=== PATIENT | female | born 2000 | race Caucasian/White ===

== ENCOUNTER 2021-08-06 13:20 | Inpatient (IN) | payer OTHER ==
[2021-08-06 14:44] VITALS: BMI 40.5
[2021-08-06 14:49] LABS: BASO % 0.3 % (0-2.0); EOS % 1.1 % (0-4.5); HEMATOCRIT 38.2 % (32.4-45.2); HEMOGLOBIN 12.7 GM/dL (10.7-15.3); LYMPH % 29.7 % (8-40); MCHC 33.3 g/dl (32.0-36.0); MEAN CELL VOLUME 84.1 fl (80-96); MEAN PLT VOLUME 9.4 fl (7.5-11.1); MONO % 5.9 % (3.8-10.2); PLATELET COUNT 238 10^3/uL (134-434); RBC 4.54 M/mm3 (3.60-5.2); RDW 14.3 % (11.6-15.6)
[2021-08-06] MEDS ORDERED: PROMETHAZINE HCL 25 MG/1 ML VIAL IVPUSH ONE (14:52)
[2021-08-06] MEDS ORDERED: BUTORPHANOL TARTRATE 1 MG/ML VIAL IVPB PRN (14:52)
[2021-08-06] MEDS ORDERED: DINOPROSTONE 10 MG VAGINAL SUPPOSITORY VG ONE (14:54)
[2021-08-06 15:14] LABS: ACTIVATED PTT 32.4 SECONDS (25.2-36.5); INR 1.02 (0.83-1.09); PROTHROMBIN TIME (PATIENT) 11.7 SEC (9.7-13.0)
[2021-08-06 15:43] LABS: BLOOD UREA NITROGEN 7.4 mg/dL (7-18)
[2021-08-06 15:46] LABS: CREATININE 0.5 mg/dL (0.55-1.3)
[2021-08-06] MEDS: ELECTROLYTE-148 SOLN 1,000 ML IV SCH (16:00)
[2021-08-06] MEDS ORDERED: AMPICILLIN - 2 GM in SODIUM CHLORIDE 100 ML IVPB ONE (18:00)
[2021-08-06] MEDS ORDERED: AMPICILLIN SODIUM 2 GM VIAL ONE (18:19)
[2021-08-06] MEDS ORDERED: AMPICILLIN SODIUM 1 GM VIAL ONE (21:31)
[2021-08-06] MEDS: AMPICILLIN - 1 GM in SODIUM CHLORIDE 100 ML IVPB SCH (21:45)
[2021-08-07] MEDS ORDERED: AMPICILLIN SODIUM 1 GM VIAL ONE ×3 (01:41→09:56)
[2021-08-07] MEDS: AMPICILLIN - 1 GM in SODIUM CHLORIDE 100 ML IVPB SCH ×5 (01:47→18:34)
[2021-08-07] MEDS ORDERED: OXYTOCIN 30 UNITS in 0.9% NS 30 UNIT/500 ML INFUS.BAG IVPB SCH (03:00)
[2021-08-07] MEDS ORDERED: OXYTOCIN 30 UNITS in 0.9% NS 30 UNIT/500 ML INFUS.BAG IVPB ONE (03:25)
[2021-08-07] MEDS ORDERED: BUTORPHANOL TARTRATE 2 MG/ML VIAL ONE (05:38)
[2021-08-07] MEDS ORDERED: PROMETHAZINE HCL 25 MG/1 ML VIAL ONE (05:38)
[2021-08-07] MEDS ORDERED: FENTANYL/BUPIVACAINE/NS/PF - PCEA - 50 ML DISP.SYRIN EP ONE (08:35)
[2021-08-07] MEDS ORDERED: BUPIVACAINE HCL/PF 0.25% (2.5MG/ML) 10 ML VIAL ONE (08:46)
[2021-08-07] MEDS: ELECTROLYTE-148 SOLN 1,000 ML IV SCH (10:00)
[2021-08-07] MEDS ORDERED: LIDOCAINE HCL/EPINEPHRINE/PF 20 ML VIAL ONE (11:47)
[2021-08-07] MEDS ORDERED: ceFAZolin SODIUM 1 GM VIAL ONE (11:51)
[2021-08-07] MEDS ORDERED: ONDANSETRON 4 MG/2 ML VIAL ONE (11:51)
[2021-08-07] MEDS ORDERED: morphine SULFATE/PF 1 MG/2 ML (2cc Syringe - QUVA) ONE (12:05)
[2021-08-07] MEDS ORDERED: OXYTOCIN 10 UNITS/ML VIAL ONE ×2 (12:18→12:20)
[2021-08-07 12:40] LABS: POC NITRAZINE NEG
[2021-08-07] MEDS ORDERED: OXYTOCIN 20 UNITS in 0.9% NS 20 UNIT/1,000 ML INFUS.BAG IV ONE (12:55)
[2021-08-07] MEDS ORDERED: METHYLERGONOVINE MALEATE 0.2 MG/1 ML AMP IM PRN (12:57)
[2021-08-07] MEDS ORDERED: ACETAMINOPHEN 325 MG TABLET (FP) PO PRN (12:57)
[2021-08-07] MEDS ORDERED: OXYTOCIN 20 UNITS in 0.9% NS 20 UNIT/1,000 ML INFUS.BAG IV SCH (13:00)
[2021-08-07] MEDS ORDERED: ONDANSETRON 4 MG/2 ML VIAL IVPUSH PRN (13:06)
[2021-08-07] MEDS ORDERED: morphine SULFATE/PF 1 MG/2 ML (2cc Syringe - QUVA) EP ONE (13:06)
[2021-08-07 13:20] LABS: CORD HCO3 22.6 mmHg (20-29); CORD PCO2 54.5 mmHg (30-78); CORD pH 7.235 (7.14-7.44)
[2021-08-07] MEDS ORDERED: NALOXONE HCL 0.4 MG/ML VIAL IVPUSH PRN (13:20)
[2021-08-07 13:22] LABS: CORD BASE EXCESS -2.3 mmol/L (0-2); CORD HCO3 24.4 mmHg (20-29); CORD pH 7.315 (7.14-7.44)
[2021-08-07] MEDS ORDERED: FENTANYL/BUPIVACAINE/NS/PF - PCEA - 50 ML DISP.SYRIN EP SCH (13:30)
[2021-08-07] MEDS ORDERED: ACETAMINOPHEN 1000 MG/100 ML BAG IVPB PRN (17:33)
[2021-08-08] MEDS ORDERED: oxyCODONE HCL 5 MG TABLET PO PRN ×2 (00:57)
[2021-08-08] MEDS: SIMETHICONE 80 MG TAB.CHEW (FP) PO PRN ×3 (05:57→19:32)
[2021-08-08 08:11] LABS: BASO % 0.1 % (0-2.0); EOS % 0.7 % (0-4.5); HEMOGLOBIN 12.1 GM/dL (10.7-15.3); LYMPH % 20.9 % (8-40); MCH 27.6 pg (25.7-33.7); MCHC 32.7 g/dl (32.0-36.0); MEAN CELL VOLUME 84.4 fl (80-96); MEAN PLT VOLUME 9.6 fl (7.5-11.1); NEUT % 71.3 % (42.8-82.8); PLATELET COUNT 209 10^3/uL (134-434); RBC 4.38 M/mm3 (3.60-5.2); RDW 14.8 % (11.6-15.6); WHITE BLOOD COUNT 7.4 K/mm3 (4.0-10.0)
[2021-08-08] MEDS ORDERED: DIPHTH,PERTUSS(ACELL),TET 0.5 ML DISP.SYRIN IM ONE (10:00)
[2021-08-08] MEDS ORDERED: BISACODYL 10 MG SUPP.RECT RC PRN (12:57)
[2021-08-08] MEDS: IBUPROFEN 600 MG TABLET (FP) PO PRN (19:33)
[2021-08-09] MEDS: SIMETHICONE 80 MG TAB.CHEW (FP) PO PRN (00:50)
[2021-08-09] MEDS: IBUPROFEN 600 MG TABLET (FP) PO PRN ×3 (00:50→17:43)
[2021-08-10] MEDS: SIMETHICONE 80 MG TAB.CHEW (FP) PO PRN (00:07)
[2021-08-10] MEDS: IBUPROFEN 600 MG TABLET (FP) PO PRN ×2 (00:07→08:34)
[2021-08-10 09:02] LABS: BASO % 0.2 % (0-2.0); EOS % 7.9 % (0-4.5); HEMOGLOBIN 11.8 GM/dL (10.7-15.3); LYMPH % 33.4 % (8-40); MCH 28.5 pg (25.7-33.7); MCHC 33.7 g/dl (32.0-36.0); MEAN CELL VOLUME 84.8 fl (80-96); MEAN PLT VOLUME 9.1 fl (7.5-11.1); NEUT % 50.5 % (42.8-82.8); PLATELET COUNT 254 10^3/uL (134-434); RBC 4.13 M/mm3 (3.60-5.2); RDW 14.5 % (11.6-15.6)
[2021-08-10 10:11] VITALS: BP 107/76; PULSE 93; TEMP 97.7
[2021-08-10] MEDS ORDERED: DINOPROSTONE 10 MG VAGINAL SUPPOSITORY VG ONE (11:41)
== END 2021-08-10 12:15 | disposition home or self-care (01) | DRG 540 ==
LOC: JDEL 13:20 → JLDR 13:35 → J3W 08-07 15:20
PROVIDERS: ADMIT Obstetrics & Gynecology; ATTEND Obstetrics & Gynecology
PROC: 3E0P7VZ Introduction of Hormone into Female Reproductive, Via Natural or Artificial Opening (ICD-10-PCS; 2021-08-06)
PROC: 10D00Z1 Extraction of Products of Conception, Low, Open Approach (ICD-10-PCS; principal; 2021-08-07)
DX: O76 Abnormality in fetal heart rate and rhythm complicating labor and delivery (principal); O48.0 Post-term pregnancy; O42.02 Full-term premature rupture of membranes, onset of labor within 24 hours of rupture; Z3A.40 40 weeks gestation of pregnancy; Z37.0 Single live birth
CPT/HCPCS: 36415; 36600; 59025; 80048; 82803; 83986-QW; 85025; 85610; 85730; 86780; 86850; 86900; 86901; 88307-TC; 90715; C9803-CS; U0003; U0005

== ENCOUNTER 2021-09-08 14:11 | Emergency (ER) | payer OTHER ==
[2021-09-08 14:36] VITALS: BP 123/76; PULSE 86; TEMP 98.3; BMI 33.5
[2021-09-08 16:44] LABS: BASO % 0.4 % (0-2.0); EOS % 3.6 % (0-4.5); HEMATOCRIT 41.3 % (32.4-45.2); HEMOGLOBIN 13.4 GM/dL (10.7-15.3); LYMPH % 45.8 % (8-40); MCHC 32.5 g/dl (32.0-36.0); MEAN CELL VOLUME 83.3 fl (80-96); MEAN PLT VOLUME 8.5 fl (7.5-11.1); MONO % 6.4 % (3.8-10.2); NEUT % 43.8 % (42.8-82.8); PLATELET COUNT 283 10^3/uL (134-434); RBC 4.96 M/mm3 (3.60-5.2); RDW 14.5 % (11.6-15.6); WHITE BLOOD COUNT 5.1 K/mm3 (4.0-10.0)
[2021-09-08 17:04] LABS: CALCIUM 9.6 mg/dL (8.5-10.1)
[2021-09-08 17:05] LABS: ALBUMIN 3.6 g/dl (3.4-5.0)
[2021-09-08 17:08] LABS: CREATININE 0.6 mg/dL (0.55-1.3)
[2021-09-08 17:10] LABS: BILIRUBIN,TOTAL 0.2 mg/dL (0.2-1); TOT PROT 7.3 g/dl (6.4-8.2)
== END 2021-09-08 17:30 | disposition home or self-care (01) ==
LOC: JER 14:11
DX: T81.89XA Other complications of procedures, not elsewhere classified, initial encounter (principal)
CPT/HCPCS: 36415; 80053; 85025; 99283-25

== ENCOUNTER 2022-11-22 07:45 | Inpatient (IN) | payer OTHER ==
[2022-11-22] MEDS: ELECTROLYTE-148 SOLN 1,000 ML IV SCH (08:10)
[2022-11-22] MEDS ORDERED: CITRIC ACID/SODIUM CITRATE 30 ML UNIT-DOSE CUP PO ONE (08:36)
[2022-11-22] MEDS ORDERED: METHYLERGONOVINE MALEATE 0.2 MG/1 ML AMP IM PRN (08:37)
[2022-11-22] MEDS ORDERED: BENZOCAINE 28 GM HEMORRHOIDAL OINTMENT TP PRN (08:37)
[2022-11-22] MEDS ORDERED: WITCH HAZEL 50% (TUCKS) 40 PAD/JAR PAD TP PRN (08:37)
[2022-11-22] MEDS ORDERED: BENZOCAINE 20% 57 GM BOTTLE TP PRN (08:37)
[2022-11-22] MEDS: AMPICILLIN NA/SULBACTAM NA 1.5 GM in SODIUM CHLORIDE 100 ML IVPB SCH ×3 (09:00→23:23)
[2022-11-22 09:26] VITALS: BMI 42.7
[2022-11-22] MEDS ORDERED: morphine SULFATE/PF 1 MG/2 ML (2cc Syringe - QUVA) ONE (09:49)
[2022-11-22] MEDS ORDERED: ceFAZolin SODIUM 1 GM VIAL ONE (09:50)
[2022-11-22] MEDS ORDERED: ONDANSETRON 4 MG/2 ML VIAL ONE (09:50)
[2022-11-22] MEDS: PRENATAL VITAMINS W/ FOLIC ACID TABLET (FP) PO SCH (10:00)
[2022-11-22] MEDS: FERROUS SO4 325 MG TABLET (FP) PO SCH ×2 (10:00→21:22)
[2022-11-22] MEDS ORDERED: OXYTOCIN 10 UNITS/ML VIAL ONE (12:08)
[2022-11-22 12:56] LABS: CORD BASE EXCESS -1.6 mmol/L (0-2); CORD HCO3 24.2 mmHg (20-29); CORD PCO2 44.7 mmHg (30-78); CORD pH 7.352 (7.14-7.44)
[2022-11-22 12:59] LABS: CORD BASE EXCESS -3.3 mmol/L (0-2); CORD HCO3 24.4 mmHg (20-29); CORD PCO2 54.3 mmHg (30-78); CORD pH 7.271 (7.14-7.44)
[2022-11-22] MEDS ORDERED: ONDANSETRON 4 MG/2 ML VIAL IVPUSH PRN (12:59)
[2022-11-22] MEDS ORDERED: IBUPROFEN 800 MG/8 ML IJ IVPB ONE (12:59)
[2022-11-22] MEDS ORDERED: OXYTOCIN 20 UNITS in 0.9% NS 20 UNIT/1,000 ML INFUS.BAG IV ONE (12:59)
[2022-11-22] MEDS: IBUPROFEN 800 MG/8 ML IJ IVPB PRN (13:00)
[2022-11-22] MEDS ORDERED: LACTATED RINGERS SOLUTION 1,000 ML IV SCH (13:00)
[2022-11-22] MEDS ORDERED: morphine SULFATE/PF 1 MG/2 ML (2cc Syringe - QUVA) EP ONE (13:00)
[2022-11-22] MEDS: OXYTOCIN 20 UNITS in 0.9% NS 20 UNIT/1,000 ML INFUS.BAG IV SCH ×2 (13:15→23:23)
[2022-11-22] MEDS ORDERED: SODIUM CHLORIDE 500 ML IV ONE (17:30)
[2022-11-22] MEDS: ACETAMINOPHEN 325 MG TABLET (FP) PO PRN (20:08)
[2022-11-23] MEDS: IBUPROFEN 800 MG/8 ML IJ IVPB PRN (00:01)
[2022-11-23] MEDS: AMPICILLIN NA/SULBACTAM NA 1.5 GM in SODIUM CHLORIDE 100 ML IVPB SCH ×2 (05:58→13:00)
[2022-11-23] MEDS: IBUPROFEN 600 MG TABLET (FP) PO PRN ×3 (07:09→22:34)
[2022-11-23] MEDS: SIMETHICONE 80 MG TAB.CHEW (FP) PO PRN (07:09)
[2022-11-23] MEDS ORDERED: BISACODYL 10 MG SUPP.RECT RC PRN (08:37)
[2022-11-23 09:08] LABS: BASO % 0.5 % (0-2.0); EOS % 2.5 % (0-4.5); HEMATOCRIT 35.5 % (32.4-45.2); HEMOGLOBIN 11.4 GM/dL (10.7-15.3); MCH 26.7 pg (25.7-33.7); MCHC 32.2 g/dl (32.0-36.0); MEAN CELL VOLUME 82.8 fl (80-96); MONO % 6.9 % (3.8-10.2); NEUT % 64.1 % (42.8-82.8); PLATELET COUNT 208 10^3/uL (134-434); RBC 4.28 M/mm3 (3.60-5.2); RDW 14.8 % (11.6-15.6); WHITE BLOOD COUNT 6.9 K/mm3 (4.0-10.0)
[2022-11-23] MEDS: ELECTROLYTE-148 SOLN 1,000 ML IV SCH (09:53)
[2022-11-23] MEDS: FERROUS SO4 325 MG TABLET (FP) PO SCH ×2 (09:54→22:34)
[2022-11-23] MEDS: PRENATAL VITAMINS W/ FOLIC ACID TABLET (FP) PO SCH (09:54)
[2022-11-23] MEDS: OXYTOCIN 20 UNITS in 0.9% NS 20 UNIT/1,000 ML INFUS.BAG IV SCH (09:54)
[2022-11-23] MEDS ORDERED: oxyCODONE HCL 5 MG TABLET PO PRN ×2 (20:37)
[2022-11-24] MEDS: ACETAMINOPHEN 325 MG TABLET (FP) PO PRN (00:44)
[2022-11-24] MEDS: FERROUS SO4 325 MG TABLET (FP) PO SCH ×2 (09:31→21:21)
[2022-11-24] MEDS: PRENATAL VITAMINS W/ FOLIC ACID TABLET (FP) PO SCH (09:32)
[2022-11-24] MEDS: IBUPROFEN 600 MG TABLET (FP) PO PRN ×2 (09:32→18:48)
[2022-11-24] MEDS: SIMETHICONE 80 MG TAB.CHEW (FP) PO PRN (21:21)
[2022-11-24 22:00] VITALS: RESP 18
[2022-11-25] MEDS: IBUPROFEN 600 MG TABLET (FP) PO PRN ×3 (00:42→14:05)
[2022-11-25] MEDS: SIMETHICONE 80 MG TAB.CHEW (FP) PO PRN ×2 (00:42→09:29)
[2022-11-25 07:53] LABS: BASO % 0.5 % (0-2.0); EOS % 5.5 % (0-4.5); HEMATOCRIT 34.3 % (32.4-45.2); HEMOGLOBIN 11.1 GM/dL (10.7-15.3); LYMPH % 50.4 % (8-40); MCH 26.8 pg (25.7-33.7); MCHC 32.5 g/dl (32.0-36.0); MEAN CELL VOLUME 82.6 fl (80-96); MEAN PLT VOLUME 9.8 fl (7.5-11.1); MONO % 6.2 % (3.8-10.2); NEUT % 37.4 % (42.8-82.8); PLATELET COUNT 243 10^3/uL (134-434); RBC 4.15 M/mm3 (3.60-5.2); RDW 14.7 % (11.6-15.6); WHITE BLOOD COUNT 6.1 K/mm3 (4.0-10.0)
[2022-11-25] MEDS: FERROUS SO4 325 MG TABLET (FP) PO SCH (09:25)
[2022-11-25] MEDS: PRENATAL VITAMINS W/ FOLIC ACID TABLET (FP) PO SCH (09:26)
[2022-11-25 12:24] VITALS: BP 113/80; PULSE 81; TEMP 97.8
== END 2022-11-25 14:40 | disposition home or self-care (01) | DRG 540 ==
LOC: JLDR 07:45 → J3W 14:50
PROVIDERS: ADMIT Obstetrics & Gynecology; ATTEND Obstetrics & Gynecology
PROC: 10D00Z1 Extraction of Products of Conception, Low, Open Approach (ICD-10-PCS; principal; 2022-11-22)
DX: O34.211 Maternal care for low transverse scar from previous cesarean delivery (principal); Z3A.39 39 weeks gestation of pregnancy; Z37.0 Single live birth; O69.81X0 Labor and delivery complicated by cord around neck, without compression, not applicable or unspecified
CPT/HCPCS: 36415; 36600; 82803; 85025; 86850; 86900; 86901; 88307-TC; 94010